=== PATIENT | female | born 1940 | race Caucasian/White ===

== ENCOUNTER 2018-03-11 20:33 | Emergency (ER) | payer MEDICARE, BC ==
[~2018-03-11] VITALS: Ht 149.9 cm; Wt 70.0 kg
[~2018-03-11 20:33] MED LIST: AMLO2.5T2 PO; CHOL400C8 PO; CYAN100087 PO; GABA-338 PO; GLIP-126 PO; HYDR-565 PO; LANTUS SQ; MULT-1133 PO; PIOG45TA PO; RABE20TA25 PO; VITC500T PO; [UNRECOGNIZED DRUG - CODE] PO
[2018-03-11 21:07] LABS: BASOPHILS % (AUTO) 0.2 % (0-1); EOSINOPHILS # (AUTO) 0.4 X10'3 (0-0.9); EOSINOPHILS % (AUTO) 2.1 % (0-6); HEMOGLOBIN 9.5 g/dl (12.0-16.0); LYMPHOCYTES # (AUTO) 1.6 X10'3 (1.1-4.8); LYMPHOCYTES % (AUTO) 9.1 % (21-51); MEAN CORPUSCULAR HEMOGLOBIN 28.2 PG (27.0-31.0); MEAN CORPUSCULAR HGB CONC 32.9 % (33.0-36.5); MEAN CORPUSCULAR VOLUME 85.9 FL (78-98); MEAN PLATELET VOLUME 7.8 FL (7.4-10.4); MONOCYTES # (AUTO) 1.2 X10'3 (0-0.9); MONOCYTES % (AUTO) 6.6 % (2-12); NEUTROPHILS # (AUTO) 14.7 X10'3 (1.8-7.7); PLATELET COUNT 345 X10'3 (140-440); RED BLOOD COUNT 3.37 X10'6 (4.20-5.60); RED CELL DISTRIBUTION WIDTH 14.3 % (11.5-14.5)
[2018-03-11 21:19] LABS: PARTIAL THROMBOPLASTIN TIME 26 SECONDS (22-32); PROTHROMBIN TIME 10.8 SECONDS (9.0-12.0)
[2018-03-11 21:24] LABS: ALANINE AMINOTRANSFERASE 23 U/L (12-78); ALBUMIN/GLOBULIN RATIO 0.6 (1.1-1.5); ALKALINE PHOSPHATASE 108 IU/L (46-116); ANION GAP 7 (8-16); ASPARTATE AMINO TRANSFERASE 20 U/L (10-37); BILIRUBIN,TOTAL 0.4 MG/DL (0.1-1.0); BLOOD UREA NITROGEN 23 MG/DL (7-18); BUN/CREATININE RATIO 20.2 (6.6-38.0); CALCIUM 8.7 MG/DL (8.5-10.1); CHLORIDE 101 MMOL/L (99-107); CREATININE 1.14 MG/DL (0.40-0.90); GLUCOSE 273 MG/DL (70-104); POTASSIUM 4.3 MMOL/L (3.5-5.1); SODIUM 136 MMOL/L (135-145); TOTAL CARBON DIOXIDE 28.1 MMOL/L (24-32); TOTAL PROTEIN 7.7 G/DL (6.4-8.2); eGFR 46 ML/MIN
[2018-03-11 23:28] LABS: CLARITY,URINE CLEAR (Clear); COLOR,URINE YELLOW (Yellow); GLUCOSE, URINE 250 mg/dl (Neg); KETONES,URINE NEGATIVE (Neg); LEUKOCYTE ESTERASE ,URINE NEGATIVE (Neg); NITRITES, URINE NEGATIVE (Neg); OCCULT BLOOD,URINE NEGATIVE (Neg); PROTEIN,URINE NEGATIVE (Neg); UROBILINOGEN,URINE 0.2 E.U/dL (0.2-1.0)
[2018-03-11] MEDS ORDERED: MORPHINE 2MG in 2ml NS syringe IV PRN (23:30)
[2018-03-11] MEDS ORDERED: ibuprofen tablet 400 MG TABLET PO ONE (23:30)
[2018-03-11 23:32] LABS: UA COLLECTION TYPE STRAIGHT CATH
[2018-03-11] MEDS ORDERED: morphine 4 MG/ML inj SYRINge IV PRN (23:40)
[2018-03-12] MEDS ORDERED: levoFLOXACIN 500mg tablet PO ONE (01:15)
[2018-03-12] MEDS ORDERED: LEVO250T2 PO (01:20)
[2018-03-12] MEDS ORDERED: HYDR-3965 PO (01:22)
[2018-03-12] MEDS ORDERED: BENZ-16 PO (01:28)
[2018-03-12 02:36] VITALS: BP 108/39
== END 2018-03-12 02:38 | disposition home or self-care (01) ==
LOC: ER 20:34
DX: R07.89 Other chest pain (principal); J18.9 Pneumonia, unspecified organism; I10 Essential (primary) hypertension; I25.2 Old myocardial infarction; E11.9 Type 2 diabetes mellitus without complications; I25.10 Atherosclerotic heart disease of native coronary artery without angina pectoris; M81.0 Age-related osteoporosis without current pathological fracture; Z88.0 Allergy status to penicillin; Z88.6 Allergy status to analgesic agent; Z88.5 Allergy status to narcotic agent; Z88.1 Allergy status to other antibiotic agents; Z79.4 Long term (current) use of insulin; Z79.899 Other long term (current) drug therapy
CPT/HCPCS: 36415; 71045; 80053; 81003; 84484; 85025; 85610; 85730; 93005; 96374; 99285; J2270; J2274

== ENCOUNTER 2018-05-28 09:28 | Day surgery (SDC) | payer MEDICARE, BC ==
[~2018-05-28] VITALS: Ht 149.9 cm; Wt 69.5 kg
[~2018-05-28 09:28] MED LIST changes: +HYDR-4353 PO; -HYDR-565 PO
[2018-05-28] MEDS ORDERED: MIDAZolam 5mg/5ml vial ONE (09:38)
[2018-05-28] MEDS ORDERED: fentaNYL/PF 50MCG/1 ML 2ML syringe ONE (09:38)
[2018-05-28] MEDS ORDERED: LIDOcaine Viscous 15ml cup ONE (09:38)
[2018-05-28 09:40] VITALS: BP 173/72
[2018-05-28 10:11] VITALS: BP 136/63
[2018-05-28 10:21] VITALS: BP 137/70
[2018-05-28 10:31] VITALS: BP 144/68
[2018-05-28 10:41] VITALS: BP 142/64
[2018-05-28] MEDS ORDERED: GLIP5TAB13 PO (10:56)
== END 2018-05-28 11:11 | disposition home or self-care (01) ==
LOC: GI LAB 09:28
PROVIDERS: ATTEND Internal Medicine Gastroenterology
DX: K22.2 Esophageal obstruction (principal); K44.9 Diaphragmatic hernia without obstruction or gangrene; K29.50 Unspecified chronic gastritis without bleeding; I11.0 Hypertensive heart disease with heart failure; I50.9 Heart failure, unspecified; K21.9 Gastro-esophageal reflux disease without esophagitis; M19.90 Unspecified osteoarthritis, unspecified site; M81.0 Age-related osteoporosis without current pathological fracture; E11.9 Type 2 diabetes mellitus without complications; Z96.651 Presence of right artificial knee joint; Z87.11 Personal history of peptic ulcer disease; Z90.49 Acquired absence of other specified parts of digestive tract; Z96.611 Presence of right artificial shoulder joint; Z96.612 Presence of left artificial shoulder joint; Z90.710 Acquired absence of both cervix and uterus; Z86.74 Personal history of sudden cardiac arrest; Z87.01 Personal history of pneumonia (recurrent); Z99.81 Dependence on supplemental oxygen; Z79.4 Long term (current) use of insulin; Z79.891 Long term (current) use of opiate analgesic; Z88.5 Allergy status to narcotic agent; Z88.6 Allergy status to analgesic agent; Z85.42 Personal history of malignant neoplasm of other parts of uterus; Z88.8 Allergy status to other drugs, medicaments and biological substances; Z79.899 Other long term (current) drug therapy; Z98.890 Other specified postprocedural states
CPT/HCPCS: 43239; 43450; J2250; J3010; J7030; 99152; A4620

== ENCOUNTER 2022-05-21 11:40 | Day surgery (SDC) | payer MEDICARE, BC ==
[2022-05-16 09:27] LABS: BASOPHILS # (AUTO) 0.1 X10'3 (0-0.2); BASOPHILS % (AUTO) 0.8 % (0-1); EOSINOPHILS # (AUTO) 0.3 X10'3 (0-0.9); EOSINOPHILS % (AUTO) 3.8 % (0-6); HEMATOCRIT 37.3 % (35.0-45.0); HEMOGLOBIN 12.6 g/dl (12.0-16.0); LYMPHOCYTES # (AUTO) 2.6 X10'3 (1.1-4.8); LYMPHOCYTES % (AUTO) 35.3 % (21-51); MEAN CORPUSCULAR HEMOGLOBIN 31.6 PG (27.0-31.0); MEAN CORPUSCULAR HGB CONC 33.8 g/dL (33.0-36.5); MEAN CORPUSCULAR VOLUME 93.6 FL (78-98); MONOCYTES # (AUTO) 0.6 X10'3 (0-0.9); MONOCYTES % (AUTO) 7.8 % (2-12); NEUTROPHILS # (AUTO) 3.8 X10'3 (1.8-7.7); NEUTROPHILS % (AUTO) 52.3 % (42-75); PLATELET COUNT 265 X10'3 (140-440); RED BLOOD COUNT 3.98 X10'6 (4.20-5.60); RED CELL DISTRIBUTION WIDTH 13.7 % (11.5-14.5); WHITE BLOOD COUNT 7.3 X10'3 (4.5-11.0)
[2022-05-16 09:48] LABS: APTT 27 SECONDS (22-32)
[2022-05-16 09:49] LABS: ALBUMIN 3.6 G/DL (3.4-5.0); ANION GAP 9 (8-16); BLOOD UREA NITROGEN 17 MG/DL (7-18); BUN/CREATININE RATIO 16.7 (6.6-38.0); CALCIUM 9.5 MG/DL (8.5-10.1); CHLORIDE 105 MMOL/L (99-107); CHOL/HDL RATIO 1.9 (0.00-4.99); CHOLESTEROL 174 MG/DL (0-200); CREATININE 1.02 MG/DL (0.40-0.90); GLUCOSE 77 MG/DL (70-104); HDL CHOLESTEROL 90 MG/DL (35-60); LDL CHOLESTEROL 63 MG/DL (50-100); POTASSIUM 4.1 MMOL/L (3.5-5.1); SODIUM 143 MMOL/L (135-145); TOTAL CARBON DIOXIDE 28.8 MMOL/L (24-32); TRIGLYCERIDES 59 MG/DL (20-135); eGFR 52 ML/MIN
[2022-05-21] VITALS (7 sets, daily range): BP systolic 133–173; BP diastolic 59–74
[~2022-05-21] VITALS: Ht 149.9 cm; Wt 64.6 kg
[~2022-05-21 11:40] MED LIST changes: -GLIP-126 PO; +GLIP5TAB13 PO; -PIOG45TA PO
[2022-05-21] MEDS ORDERED: LORazepam 0.5 MG tablet PO PRN (12:10)
[2022-05-21] MEDS ORDERED: normal saline 1,000 ML IV SCH (12:10)
[2022-05-21] MEDS ORDERED: diphenhydrAMINE 25mg capsule PO PRN (12:10)
[2022-05-21] MEDS ORDERED: MULT-1085 PO (12:20)
[2022-05-21] MEDS ORDERED: PANT20TA18 PO (12:20)
[2022-05-21] MEDS ORDERED: METF-1203 PO (12:20)
[2022-05-21] MEDS ORDERED: fentaNYL/PF 50MCG/1 ML 2ML syringe ONE (13:41)
[2022-05-21] MEDS ORDERED: midazolam 1 mg/ML 2ml injection ONE (13:41)
[2022-05-21] MEDS ORDERED: LIDOcaine 1% 30ml preserv. free vial ONE (13:41)
[2022-05-21] MEDS ORDERED: iohexol 300mg/ml 100ml inj. ONE (13:41)
[2022-05-21] MEDS ORDERED: heparin 1,000unit/ml 10ml vial 0 ML ONE (13:41)
[2022-05-21] MEDS ORDERED: nitroGLYCERIN-Tridil 50MG/D5W 0 ML IV ONE (13:45)
--- NOTE | 2022-05-21 14:56 | NUR ---
1440 Pt voided 400ml clear yellow.
--- NOTE | 2022-05-21 14:57 | NUR ---
1425 pt returned to unit. Pt denies pain, denies sob. Pt had 100ml oral fluid intake. Site stable, DRSG, CD&I, no hematoma.
== END 2022-05-21 16:33 | disposition home or self-care (01) ==
LOC: SSTAY O 11:40
PROVIDERS: ATTEND Student in an Organized Health Care Education/Training Program
DX: R94.39 Abnormal result of other cardiovascular function study (principal); I25.10 Atherosclerotic heart disease of native coronary artery without angina pectoris; I25.82 Chronic total occlusion of coronary artery; I10 Essential (primary) hypertension; E78.5 Hyperlipidemia, unspecified; I27.20 Pulmonary hypertension, unspecified; Z79.899 Other long term (current) drug therapy; Z79.01 Long term (current) use of anticoagulants; M10.9 Gout, unspecified; G47.33 Obstructive sleep apnea (adult) (pediatric); Z88.8 Allergy status to other drugs, medicaments and biological substances; Z88.6 Allergy status to analgesic agent; Z98.890 Other specified postprocedural states
CPT/HCPCS: 36415; 80048; 80061; 82948; 85025; 85610; 85730; 93005; 93458; 99152; C1760; C1769; C1894; J1644; J2250; J3010; J3490; J7030; Q0163; Q9967; 99153; A4620; A6258

== ENCOUNTER 2022-09-15 13:21 | Emergency (ER) | payer MEDICARE, BC ==
[~2022-09-15] VITALS: Ht 149.9 cm; Wt 65.0 kg
[~2022-09-15 13:21] MED LIST changes: -GLIP5TAB13 PO; +METF-1203 PO; +MULT-1085 PO; +PANT20TA18 PO; -RABE20TA25 PO
--- NOTE | 2022-09-15 15:19 | NUR ---
MRI SCREENING FORM COMPLETED AND SENT
[2022-09-15] MEDS ORDERED: ketorolac trometh inj. 60 MG/2 ML VIAL IM ONE (18:00)
[2022-09-15 18:30] VITALS: BP 126/59
== END 2022-09-15 18:31 | disposition home or self-care (01) ==
LOC: ER 13:24
DX: M54.42 Lumbago with sciatica, left side (principal); G89.29 Other chronic pain; M25.552 Pain in left hip; I25.10 Atherosclerotic heart disease of native coronary artery without angina pectoris; I10 Essential (primary) hypertension; I25.2 Old myocardial infarction; E11.9 Type 2 diabetes mellitus without complications; Z88.0 Allergy status to penicillin; Z88.5 Allergy status to narcotic agent; Z88.8 Allergy status to other drugs, medicaments and biological substances; Z79.4 Long term (current) use of insulin; Z79.899 Other long term (current) drug therapy
CPT/HCPCS: 72148; 96372; 99285; J1885